=== PATIENT | female | born 1970 | race Caucasian/White ===

== ENCOUNTER 2020-08-09 10:24 | Outpatient (REF) | payer BC, SELFPAY | END 2020-08-09 10:25 | disposition home or self-care (01) | LOC: HO.LAB 10:24 | PROVIDERS: PCP Family Medicine; Visit Provider Internal Medicine | DX: Z20.828 Contact with and (suspected) exposure to other viral communicable diseases (principal) | CPT/HCPCS: C9803; U0003 ==

== ENCOUNTER 2022-02-03 15:31 | Outpatient (REF) | payer OTHER, SELFPAY ==
--- NOTE | ~2022-02-03 | MM_ITS ---
EXAMINATION: MM SCREENING DIGITAL BREAST TOMOSYNTHESIS, BILATERAL CLINICAL INFORMATION: Screening. Asymptomatic. The lifetime risk of breast cancer based on the Tyrer-Cuzick Model is 10%. COMPARISON: Mammography: 10/19/2019, 02/27/2018, 02/03/2016 TECHNIQUE: Digital breast tomosynthesis is performed in both the craniocaudal and mediolateral oblique views along with computer-aided detection (CAD). Synthesized 2D images are generated from the tomosynthesis. FINDINGS: The breasts are heterogeneously dense, which may obscure small masses (ACR BI-RADS breast composition Category c). There is fibronodular parenchymal pattern similar to prior exams. Stable nodularity retroareolar right breast is again noted. Neither breast shows interval dominant mass or architectural abnormality or abnormal calcifications. The axilla and skin contours are unremarkable. No significant changes. MM/MM tomosynthesis screening BI IMPRESSION: No significant changes from prior studies. ASSESSMENT: BI-RADS 2: Benign RECOMMENDATION: Routine annual mammography screening. This patient's information was entered into a reminder system with a target due date for their next mammogram.
== END 2022-02-03 15:32 | disposition home or self-care (01) ==
LOC: HO.MAMMO 15:31
PROVIDERS: Visit Provider Family Medicine
DX: Z12.31 Encounter for screening mammogram for malignant neoplasm of breast (principal)
CPT/HCPCS: 77063; 77067

== ENCOUNTER 2023-02-28 15:38 | Outpatient (REF) | payer OTHER, SELFPAY ==
--- NOTE | ~2023-02-28 | MM_ITS ---
EXAMINATION: MM SCREENING DIGITAL BREAST TOMOSYNTHESIS, BILATERAL CLINICAL INFORMATION: Screening. Asymptomatic. The lifetime risk of breast cancer based on the Tyrer-Cuzick Model is 7%. COMPARISON: Mammography: 02/03/2022, 10/19/2019, 02/27/2018 TECHNIQUE: Digital breast tomosynthesis is performed in both the craniocaudal and mediolateral oblique views along with computer-aided detection (CAD). Synthesized 2D images are generated from the tomosynthesis. FINDINGS: The breasts are heterogeneously dense, which may obscure small masses (ACR BI-RADS breast composition Category c). There is fibronodular parenchymal pattern similar to prior studies. No interval dominant mass or architectural abnormality or abnormal calcifications. There is incidental benign coarse calcification anterior right breast in area of stable nodularity consistent with degenerating fibroadenoma. The axilla and skin contours are unremarkable. There are no significant changes from prior exam. MM/MM tomosynthesis screening BI IMPRESSION: No significant changes from prior studies. ASSESSMENT: BI-RADS 2: Benign RECOMMENDATION: Routine annual mammography screening. This patient's information was entered into a reminder system with a target due date for their next mammogram.
== END 2023-02-28 15:39 | disposition home or self-care (01) ==
LOC: HO.MAMMO 15:38
PROVIDERS: PCP Family Medicine; Visit Provider Family Medicine
DX: Z12.31 Encounter for screening mammogram for malignant neoplasm of breast (principal)
CPT/HCPCS: 77063; 77067

== ENCOUNTER 2024-03-01 15:18 | Outpatient (REF) | payer OTHER, SELFPAY ==
--- NOTE | ~2024-03-01 | MM_ITS ---
EXAMINATION: MM SCREENING DIGITAL BREAST TOMOSYNTHESIS, BILATERAL CLINICAL INFORMATION: Screening. Asymptomatic. COMPARISON: Mammography: This study is compared with prior exams dating back to 2019. TECHNIQUE: Digital breast tomosynthesis is performed in both the craniocaudal and mediolateral oblique views along with computer-aided detection (CAD). Synthesized 2D images are generated from the tomosynthesis. FINDINGS: There are scattered areas of fibroglandular density (ACR BI-RADS breast composition Category b). There are no significant masses, abnormal calcifications, or other abnormalities. There is a coarse calcification associated with a mammographically benign mass in the right retroareolar region. MM/MM tomosynthesis screening BI IMPRESSION: No mammographic evidence of malignancy. ASSESSMENT: BI-RADS BI-RADS 2 - Benign Findings RECOMMENDATION: Routine annual mammography screening. 1 year F/U This examination should not preclude the clinical evaluation of a suspicious palpable abnormality. This patient's information was entered into a reminder system with a target due date for their next mammogram.
== END 2024-03-01 15:19 | disposition home or self-care (01) ==
LOC: HO.MAMMO 15:18
PROVIDERS: PCP Family Medicine; Visit Provider Family Medicine
DX: Z12.31 Encounter for screening mammogram for malignant neoplasm of breast (principal)
CPT/HCPCS: 77063; 77067

== ENCOUNTER → 2024-03-01 15:30 | Outpatient (BNV) | payer OTHER, SELFPAY | PROVIDERS: PCP Family Medicine; Visit Provider Radiology Diagnostic Radiology | DX: Z12.31 Encounter for screening mammogram for malignant neoplasm of breast (principal) | CPT/HCPCS: 77063; 77067 ==

== ENCOUNTER 2024-03-30 07:53 | Day surgery (SDC) | payer BC, SELFPAY ==
[2024-03-27 13:50] VITALS: BMI 30.7
[2024-03-30 08:03] VITALS: BMI 29.2
[2024-03-30 08:08] VITALS: BP 131/62; PULSE 71; RESP 15; TEMP 36.3; O2SAT 99
--- NOTE | 2024-03-30 08:13 | HO.ANESPROP2 ---
[facility] Past Medical History Medical History HX: benign breast biopsy Seasonal allergies Surgical History Surgical History Hx of tubal ligation History of Problems with Anesthesia: No Social History Social History Household Members: Spouse Patient Tobacco Use Status: Never used Tobacco Use of substances other than those prescribed or required for medical reasons: No Are you DNR?: No Advance Directives: No Advance Directives Information Provided: Yes Meds Allergies Allergy/AdvReac Type Severity Reaction Status Date / Time oxycodone [Percocet] Allergy Intermediate hives Verified 03/30/24 08:03 Active Medications: Current Medications Sodium Biphosphate/Sodium Phosphate (Sodium Phosphate,Yellowstone-Dibasic 133 Ml Enema) 133 ml NV ONCE PRN PRN Reason: Poor Colonoscopy Prep Results Home Medications ?Medication ?Instructions ?Recorded ?Confirmed ?Last Taken ?Type cetirizine 10 mg tablet (Zyrtec) 10 mg PO DAILY 03/27/24 03/27/24 Unknown History Exam Height,Weight and Vital Signs: Height 5 ft 6 in Weight 82.01 kg Airway Mallampati Class: II TM Dist: >3cm Neck ROM: Full Loose/Missing/Broken Teeth: No Heart: RRR Lungs: CTA Assessment and Plan Assessment Anesthesia Assessment: Anesthesia Plan Discussed and Chart Reviewed Final Anesthetic Review History of Problems with Anesthesia: No NPO: Yes ASA Class: II Final Preanesthetic Review: Meds/Allgs Chart Reviewed, Consent Obtained/Reviewed and Anes Risks/Benef Reviewed Patient Risk: Low Procedure Risk: Low Anesthetic Plan Anesthetic Plan: MAC: Disposition: Standard PACU
[2024-03-30] MEDS: Lactated Ringers 1,000 ML 50 ML IVCONT (08:23)
[2024-03-30 09:38] VITALS: BP 98/48; PULSE 69; RESP 16; TEMP 36.3; O2SAT 98
--- NOTE | 2024-03-30 09:41 | P.BOP_ITS ---
Brief Operative Note Date of Service: 03/30/24 Pre-op diagnosis: Screening Post-op diagnosis: other (Colon polyps) Procedure: Colonoscopy to the cecum with cold snare polypectomy x 2 Surgeon: Shree Guzman MD Anesthesia: MAC Was an Residential Sales Consultant used for this Procedure?: No Estimated blood loss (mL): 2.0 Pathology: other (A. Polyp at 60cm B. Polyp at 30cm.) Condition: stable Disposition: PACU
[2024-03-30 09:53] VITALS: BP 112/69; PULSE 55; RESP 16; O2SAT 99
--- NOTE | 2024-03-30 09:53 | OP_ITS ---
DATE OF SERVICE: 03/30/2024 SURGEON: Shree Guzman MD INDICATIONS: The patient presents for evaluation of colorectal cancer screening. Full consent obtained from her for this, including risks of bleeding and perforation. PREOPERATIVE DIAGNOSIS: POSTOPERATIVE DIAGNOSIS: PROCEDURE PERFORMED: Colonoscopy to cecum with cold snare polypectomy. ESTIMATED BLOOD LOSS: COMPLICATIONS: ANESTHESIA: Monitored anesthesia care. ASSISTANTS: SPECIMENS: PREOP DIAGNOSIS: Colorectal cancer screening. POSTOP DIAGNOSES: Same, small colon polyps, occasional sigmoid diverticulosis, small internal hemorrhoids. DESCRIPTION OF PROCEDURE: The patient was placed in the left lateral decubitus position. The digital rectal exam revealed no abnormalities. The Olympus video pediatric colonoscope was entered into the rectum and advanced easily to the cecum. Once in the cecum, I did identify normal-appearing cecal pouch with appendiceal orifice and a normal-appearing ileocecal valve. The entire cecum and ileocecal valve appeared normal. Scope was slowly withdrawn assessing all mucosal surfaces carefully. Preparation was excellent. At 60 cm was an approximately 4 mm polyp, which was removed by cold snare polypectomy and recovered by suction. The polypectomy site appeared clean, without any sign of residual polyp nor any significant bleeding. At 30 cm was an approximately 5 or 6 mm grossly adenomatous polyp, which was removed by cold snare polypectomy and recovered by suction. The polypectomy site appeared clean, without any sign of residual polyp nor bleeding. I did not visualize any other polyps, colitis, nor angiodysplasia. There was a mild amount of sigmoid diverticulosis. In the rectum, scope was retroflexed visualizing internal hemorrhoids, but no other pathology. The rectal mucosa appeared normal. The scope was straightened and withdrawn from the patient. She tolerated the procedure well and was returned to the recovery area in stable condition. IMPRESSION: 1. Colon polyps. 2. Diverticulosis. 3. Internal hemorrhoids. PLAN: The results of the pathology will be checked; if either of the polyps are tubular adenoma, I would recommend a followup colonoscopy in 5 years. If they are both hyperplastic, I would recommend a followup coloscopy in 10 years. She will otherwise see me on a p.r.n. basis. MD VENANCIO [place]/SHLOMO / [phone]
[2024-03-30 10:08] VITALS: BP 113/57; PULSE 61; RESP 18; TEMP 36.1; O2SAT 97
== END 2024-03-30 10:43 | disposition home or self-care (01) ==
PROVIDERS: PCP Family Medicine; Visit Provider Internal Medicine
PROC: 0DJD8ZZ Inspection of Lower Intestinal Tract, Via Natural or Artificial Opening Endoscopic (ICD-10-PCS; CPT 45378; principal; 2024-03-30 09:00)
DX: Z12.11 Encounter for screening for malignant neoplasm of colon (principal); D12.5 Benign neoplasm of sigmoid colon; K63.5 Polyp of colon; K57.30 Diverticulosis of large intestine without perforation or abscess without bleeding; K64.8 Other hemorrhoids; J30.2 Other seasonal allergic rhinitis; Z79.51 Long term (current) use of inhaled steroids; Z88.5 Allergy status to narcotic agent; Z98.51 Tubal ligation status
CPT/HCPCS: 45385; 88305; J2704

== ENCOUNTER 2025-03-07 15:06 | Outpatient (REF) | payer BC, SELFPAY ==
--- OUTSIDE RECORDS SUMMARY | 2025-03-07 17:45 | XMS_ITS ---
Author Organization [facility] Address [address] [place] [address] Care Team Providers Care Manager Express Name Role Phone Barbara Kelly M.D. Primary Care Provider Unava Shree Lu [phone] REASON FOR VISIT colonoscopy Encounters Encounter Location Date Provider Diagnosis [facility] [address] [place] [address] 02/27/2024 Shree Guzman Plan Of Treatment No Information Progress Notes * ALICIA [birth year]SDOB:[birth year] (54 yo F)Acc No.[id number]:02/27/2024 Patient:?ALICIA SEALS :1970???Age:54 Y???Sex:Female [place]: [place], [address] * true * Date:? Generated for Juan Migueli jostin/Leny/eTransmitting on:?03/07/2025 05:44 PM EDT
== END 2025-03-07 15:07 | disposition home or self-care (01) ==
LOC: HO.MAMMO 15:06
PROVIDERS: PCP Family Medicine; Visit Provider Family Medicine
DX: Z12.31 Encounter for screening mammogram for malignant neoplasm of breast (principal)
CPT/HCPCS: 77063; 77067

== ENCOUNTER → 2025-03-07 15:15 | Outpatient (BNV) | payer BC, SELFPAY | PROVIDERS: PCP Family Medicine; Visit Provider Internal Medicine | DX: Z12.31 Encounter for screening mammogram for malignant neoplasm of breast (principal) | CPT/HCPCS: 77063; 77067 ==

== ENCOUNTER 2025-05-28 14:44 | Outpatient (REF) | payer BC, SELFPAY ==
--- NOTE | ~2025-05-28 | MM_ITS ---
EXAMINATION: MM DIAGNOSTIC DIGITAL BREAST TOMOSYNTHESIS, LEFT CLINICAL INFORMATION: Callback from screening for left breast asymmetry in the superior breast middle depth on the MLO view. COMPARISON: Comparison made to multiple prior, most recent March 07, 2025, and most remote April 15, 2014. TECHNIQUE: Digital breast tomosynthesis is performed in full-field MLO along with computer-aided detection (CAD). Synthesized 2D images are generated from the tomosynthesis. Spot compression tomosynthesis were obtained. FINDINGS: BREAST COMPOSITION: There are scattered areas of fibroglandular density (ACR BI-RADS breast composition Category b). LEFT BREAST: Previously suggested asymmetry in the upper breast middle depth partially effaces on today's images. It is adjacent to the scar skin marker (from remote excisional biopsy). Local parenchyma is similar to multiple prior studies as far back as 2013 and may be secondary to previous surgery. MM/MM tomosynthesis added views L IMPRESSION: LEFT BREAST: Pliable asymmetry in the upper breast, likely related to the prior surgery. Benign, no mammographic evidence of malignancy. Normal interval follow-up is recommended in 12 months. ASSESSMENT: BI-RADS 2 - Benign Findings RECOMMENDATION: 1 year F/U Results were provided to the patient at time of visit by the technologist. This patient's information was entered into a reminder system with a target due date for their next mammogram. Electronically signed by: Luis Pryor MD 05/28/2025 06:28 PM EDT Workstation: [id number]
--- OUTSIDE RECORDS SUMMARY | 2025-05-28 15:58 | XMS_ITS | Clinical Summary ---
Author Organization [facility] Address [address] [place] [address] Care Team Providers Care Client Services Representative Name Role Phone Unavailable Primary Care Provider Unavailabl e Source Comments PLEASE NOTE, if this patient is a minor, it may be UNLAWFUL to discuss sensitive information that is contained in these records (such as FAMILY PLANNING, MENTAL HEALTH or SUBSTANCE ABUSE) with the minor patient's parent or other person without the patient's specific authorization.[facility] Immunizations Immunization Administration Dates Next Due Moderna COVID-19 Vaccine, re d cap blue label, 12+ Primary Series 01/06/2021,12/09/2020 Social History Tobacco Use Types Packs/Day Years Used Date Smoking Tobacco: Never Assessed Social Connections Answer Date Recorded Social Connections and Isolation 0 2024 Financial Resource Strain Answer Date R ecorded Financial Resource Strain 0 2023 Stress Answer Date Recorded Stress 0 2024 Physical Activity Answer Date Recorded Physical Activity 0 2024 Food Insecurity Answer Date Recorded Food 0 2024 Transportation Needs Answer Date Record ed Transportation 0 2024 Housing Stability Answer Date Recorded Housing 0 2024 Safety and Environment Answer Date Gideon rded Safety 0 2024 Utilities Answer Date Recorded Utilities 0 2024 Employment Answer Date Recorded Employment 0 2024 Comments Unknown Sex and Gender Information Value Date Recorded Sex Assigned at Not on file Legal Sex Female 5:33 AM PST Gender Identity Not on file Sexual Orientation Not on file Plan of Treatment Health Maintenance Due Date Last Done Comments Anxiety Screening 1970 Diabetes Screening 1970 HPV Screening 1970 Hepatitis C Screening 1972 Lipid Screening 1972 Pap + HPV 1972 Tobacco Screening 1972 HIV Screening 01/26/1987 Hypertension Screening (#1) 01/26/1990 Imm-Hepatitis B (1 of 3 - 19 + 3-dose series) 01/26/1991 Cervical Cancer Screening 01/26/1993 Pap Smear 01/26/1993 Breast Cancer Screening (Mammogram) 2012 CT Colonography 01/26/2017 Colonoscopy 01/26/2017 Colorectal Cancer Screening 01/26/2017 FIT/gFOBT 01/26/2017 Fecal DNA 01/26/2017 Flexible Sigmoidoscopy 01/26/2017 Imm-Pneumococcal 50+ (1 of 1 - PCV) 01/26/2022 Imm-Zoster, Recombinant (1 of 2) 01/26/2022 [id number] (3 - 2023- season) 2024 021, 12/09/2020 Alcohol and Drug Screen 09/26/2024 Depression Annual Screen 09/26/2024 Imm-Influenza (#1) 2025 Imm-DTaP/Tdap/Td (2 - Td or Tdap) 04/21/2026 016 Cervical Ablation/Cold-Knife Conization Discontinued Cervical Cryotherapy Discontinued Colposcopy Discontinued Endometrial Biopsy Discontinued Excision/Leep Discontinued HPV Genotyping Discontinued Vaginal Pap Discontinued Vulvoscopy Discontinued Insurance BLUE CROSS/[place]
--- OUTSIDE RECORDS SUMMARY | 2025-05-28 15:58 | XMS_ITS | Clinical Summary ---
Author Organization [facility] Address [facility] [place] [address] [address] Phone Care Team Providers Care Implementation Lead Name Role Phone Barbara Kelly MD Primary Care Provider Barbara Kelly MD Unavailable [phone] Allergies Active Allergy Reactions Criticality Noted Date Comments Oxycodone-Acetaminophen Hives,Itching 0 Medications cetirizine (ZYRTEC) 10 MG tablet Take 10 mg by mouth daily. Active Active Problems Problem Noted Date Diagnosed Date Family history of uterine cancer 03/06/2025 Overview (03/06/2025): Mother, endometrial, stage 4 Allergic contact dermatitis 01/23/2025 Assessment & Plan (01/23/2025 4:44 PM EDT): Family history of breast cancer 05/18/2023 Overview (03/06/2025): Maternal aunt in 60s Assessment & Plan (01/23/2025 9:33 AM EDT): Orders: Ambulatory referral to [facility] Cancer Genetics Routine medical exam 04/22/2022 Assessment & Plan (01/23/2025 4:44 PM EDT): 54 y.o. female here for complete physical exam. Medical comorbidities stable and/or managed by specialists as noted in the HPI. USPSTF A&B recommendations reviewed with pt. BP: WNL BMI: Body mass index is 30.8 kg/m . and encourage regular exercise Pap smears for people age 21-65 with a cervix: schedled to see PUBLIC HEALTH DIETITIAN in February STI testing for teens and adults at risk, and at least one lifetime HIV, hep B& C test: Done previously and normal/negative per pt PrEP for persons at high risk of HIV: N/A plans in the next year: N/A patient/partner is postmenopausal Depression and anxiety screens: Negative IPV screen in women of reproductive age (or others PRN): Negative Smoking cessation counseling: N/A Alcohol use counseling: N/A LTBI screening in people at increased risk: Done previously and normal/negative per pt BrCa screening in women/AFAB people at risk: 7-Question Family History Screening Tool and Any woman in the family with breast cancer before age 50 - 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 The 10-year ASCVD risk score (Laly HERNANDEZ, et al., 2019) is: 0.9% Values used to calculate the score: Age: 54 years Sex: Female Is Non- : No Diabetic: No Tobacco smoker: No Systolic Blood Pressure: 104 mmHg Is BP treated: No HDL Cholesterol: 61 mg/dL Total Cholesterol: 208 mg/dL Glucose/diabetes screening for people 35 - 70 with BMI >25: WNL 2022, repeat 3-5 years HEMOGLOBIN A1C Date Value Ref Range Status 05/17/2023 5.5 4.3 - 5.8 % Final Breast cancer risk reducing medication in people with breasts 35 and older at risk: depends on genetic Breast cancer screening with biennial mammography for people with breasts 40 and older: Not due until 2025 Colonoscopy for adults 45-75: Not due until 2028 Serial lung cancer screening for adults age 50-80 with 20+ pack year history who currently smoke or quit in the last 15 years: N/A Assessment & Plan (05/18/2023 8:05 AM EDT): 53 y.o. female here for complete physical exam. 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 USPSTF A&B recommendations reviewed with pt. BP: mildly elevated; forgot to recheck; will continue to monitor BMI: Body mass index is 30.91 kg/m . and discussed limiting sweets after 9 PM, which she feels is realistic and will help Pap smears for people age 21-65 with a cervix: Not due until 2024 STI testing for teens and adults at risk, and at least one lifetime HIV and hep C test: Done previously and normal/negative per pt PrEP for persons at high risk of HIV: N/A plans in the next year: N/A patient/partner is perimenopausal Depression and anxiety screens: Negative IPV screen in women of reproductive age (or others PRN): Negative Smoking cessation counseling: N/A Alcohol use counseling: N/A LTBI screening in people at increased risk: Done previously and normal/negative per pt BrCa screening in women/AFAB people at risk: 7-Question Family History Screening Tool and Any woman in the family with breast cancer before age 50 - aunt age 48. Discussed, referral placed. May opt to go to [place] instead if available there Vaccinations: recommend COVID booster @ pharmacy Last dental visit: up to date Lipid screening to consider statin for primary prevention for adults 40-75, or at younger ages with risk factors: low risk 2021, repeat @ 5 years This SmartLink has been updated to reference the ASCVD 2013 equation and not the 2018 equations. The 10-year ASCVD risk score (Laly HERNANDEZ, et al., 2019) is: 1.4% Values used to calculate the score: Age: 53 years Sex: Female Is Non- : No Diabetic: No Tobacco smoker: No Systolic Blood Pressure: 135 mmHg Is BP treated: No HDL Cholesterol: 61 mg/dL Total Cholesterol: 208 mg/dL Glucose/diabetes screening for people 35 - 70 with BMI >25: Ordered HEMOGLOBIN A1C Date Value Ref Range Status 04/20/2022 5.7 4.3 - 5.8 % Final Breast cancer risk reducing medication in people with breasts 35 and older at risk: Depends ongenetics Aspirin for primary prevention for adults 40-59 with risk >10%, but no older: N/A Breast cancer screening with biennial mammography for people with breasts 50 and older, and can consider for 40-49: done at [address] year per pt Colonoscopy for adults 45-75, and can consider at older ages: Referred to Gastroenterology Assessment & Plan (04/22/2022 4:51 PM EDT): 52 y.o. female here for complete physical exam. Exam consistent with tinea pedis. We discussed that treatment needs to be a lot more consistent. [id number] medicine should work just fine if she uses it twice daily. I think she may be having some kind of contact dermatitis to her jewelry. I recommend a trial of a topical steroid along with full avoidance of jewelry on this wrist. If her rash clears up she can try wearing her brace that again and if that brings the rash on again then that we will answer question of whether it is the irritant. If the rash does not improve with this treatment then she should call me for a referral to dermatology. Her other, seasonal allergies have been stable. USPSTF A&B recommendations reviewed with pt. BP: WNL BMI: Body mass index is 30.99 kg/m . and recommend eating less sweets, which she characterizes as a chronic struggle Pap smears for people age 21-65 with a cervix: Not due until 2024 STI testing for teens and adults at risk, and at least one lifetime HIV and hep C test: Done previously and normal/negative per pt PrEP for persons at high risk of HIV: N/A plans in the next year: No plans for . 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 Last dental visit: up to date Lipid screening to consider statin for primary prevention for adults 40-75, or at younger ages with risk factors: Ordered Glucose/diabetes screening for people 35 - 70 with BMI >25: Ordered Breast cancer risk reducing medication in people with breasts 35 and older at risk: n/a Aspirin for primary prevention for adults 40-59 with risk >10%, but no older: Depends on lipids Breast cancer screening with biennial mammography for people with breasts 50 and older, and can consider for 40-49: done in January at [facility] per pt Colonoscopy for adults 45-75, and can consider at older ages: prefers FIT screening for now Mild obesity 04/22/2022 Assessment & Plan (01/23/2025 4:44 PM EDT): Environmental and seasonal allergies 04/15/2020 Overview (04/15/2020): Springtime worse - takes zyrtec 10 mg daily. Assessment & Plan (01/23/2025 4:44 PM EDT): Resolved Problems Problem Noted Date Diagnosed Date Resolved Date Rash and other nonspecific skin eruption 04/22/2022 01/06/2024 Encounters Date Type Department Care Team Description 04/26/2025 Telephone [facility] Primary Care [address] [place] [address] Barbara Kelly MD additional breast imaging requested 03/18/2025 Orders Only [facility] Family Medicine [address] [place] [address] Barbara Kelly MD 03/06/2025 2:30 PM EDT Office Visit [facility] [address] [place] [address] [place] [address] Eda Quinonez MD Encounter for annual routine gynecological examination (Primary Dx); Family history of breast cancer; Family history of uterine cancer from Last 3 Months Immunizations Immunization Administration Dates Next Due Pneumococcal conjugate PCV20 01/23/2025 Tdap 04/21/2016 Zoster recombinant 11/10/2022,04/20/2022 Family History Medical History Relation Comments Breast cancer Maternal Aunt Colon cancer Maternal Grandmother Diabetes Maternal Grandmother Asthma Mother Brain cancer Mother Diabetes Mother Endometrial cancer Mother Coronary artery disease Neg Hx Ovarian cancer Neg Hx Stroke Neg Hx Relation Status Comments Daughter Alive Father Maternal Aunt Alive Maternal Grandmother Mother Son Alive Social History Tobacco Use Types Packs/Day Years Used Date Smoking Tobacco: Never Smokeless Tobacco: Never Tobacco Cessation:Counseling Given: Not Answered Alcohol Use Standard Drinks/Week Comments Not Currently 0 (1 standard drink = 0.6 oz pur e alcohol) Child or Family Care Answer Date Record ed Do you have problems with on e of the following making it difficult for you to work, study, or receive health care? No 01/23/2025 Education Answer Date Recorded Are you interested in help w ith more adult education (for example, completing high school, GED, job training, learning the [place] language, technical skills, or developing parenting skills)? No 01/23/2025 Are you concerned about learning? Not on file 01/23/2025 No 01/23/2025 Yes 01/23/2025 Food Answer Date Recorded Within the past 6 months we worried whether our food would run out before we got money to buy more. Never True 01/23/2025 Within the past 6 months the food we bought just didn't last and we didn't have enough money to get more. Never True Residential Stability Answer Date Recor ded What is your housing situation today? I have tiera sing 01/23/2025 How many times have you move d in the past 12 months? Zero (I did not move) 01/23/2025 Paying for Meds Answer Date Recorded Do you have trouble paying for medicines? No 01/23/2025 Paying Utility Bills Answer Date Record ed Do you have trouble paying your heating or elect ricity bill? No 01/23/2025 Transportation Answer Date Recorded Has the lack of transportati on kept you from medical appointments or from getting medications? No 01/23/2025 Unemployment Answer Date Recorded Are you currently unemployed or working on a part-time or temporary basis, and looking for work? No 04/20/2022 Digital Access Answer Date Recorded No 01/23/2025 Yes 01/23/2025 Do you have reliable internet access at home? Ye s 01/23/2025 Do you have a device (e.g., phone, tablet, computer) with a working camera? Yes 01/23/2025 Intimate Partner Violence Answer Date R ecorded Denied Basic Needs Not on file 01/23/2025 In the past 12 months have y ou been in a relationship with a person who hurts, threatens, or tries to control you? No 01/23/2025 Worried food would run out Not on file 01/23 In the past 12 months have y ou been in a relationship with a person who hurts, threatens, or tries to control you? 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 Not on file Not on file Not on file Last Filed Vital Signs Vital Sign Reading Time Taken Comments Blood Pressure 122/82 03/06/2025 2:41 PM EDT Pulse 74 01/23/2025 8:46 AM EDT Temperature 36.6 C (97.8 F) 01/23/2025 8:46 AM EDT Respiratory Rate 18 01/23/2025 8:46 AM EDT Oxygen Saturation 93% 01/23/2025 8:46 AM EDT Inhaled Oxygen Concentration - - Weight 86.6 kg (191 lb) 03/06/2025 2:41 PM EDT Height 167.6 cm (5' 6 ) 03/06/2025 2:41 PM EDT Body Mass Index 30.83 03/06/2025 2:41 PM EDT Plan of Treatment Upcoming Encounters Date Type Department Care Team (Late st Contact Info) Description 04/08/2026 9:00 AM EDT Office Visit [facility] [address] [facility] [address] [place] [address] Barbara Kelly MD [address] [facility] [address] [place] [address] [email or web address] Health Maintenance Due Date Last Done Comments COLOGUARD 01/26/2017 FIT TEST 01/26/2017 FOBT 01/26/2017 SIGMOIDOSCOPY 01/26/2017 VIRTUAL COLONOSCOPY 01/26/2017 COVID-19 VACCINE ( season) 2025 08/01/2021, 01/06/2021, 12/09/2020 Postponed from 05/27/2024 (Vaccine Shortage) MAMMOGRAM 09/06/2025 03/07/2025, 06/0 02/2024, 10/19/2019 DEPRESSION SCREENING 01/23/2026 01/23/2025 HEPATITIS C SCREENING 01/23/2026 Postpo jessenia from 01/26/1990 (Patient Declines / Guardian Declines) HIV ONE-TIME SCREENING (18-65 YEARS) 01/23/2026 Postponed from 01/26/1990 (Patient Declines / Guardian Declines) Adult Td,Tdap Booster 04/21/2026 04/21/2016 SCREENING FOR DIABETES 05/17/2026 05/17/2023 LIPID PANEL 04/20/2027 04/20/2022 COLONOSCOPY 03/30/2029 03/30/2024 COLORECTAL CANCER SCREENING 03/30/2029 PAP SMEAR 03/06/2030 03/06/2025, 05/28, 06/18/2020, Additional history exists ZOSTER VACCINES Completed 11/10/2022, 04/20/2022 PNEUMOCOCCAL VACCINES (50+ years) Completed 01/23/2025 SMOKING STATUS SCREENING (Once After 26 Yrs) Completed 03/06/2025 HEPATITIS A VACCINES Aged Out No long er eligible based on patient's age to complete this topic HIB VACCINES Aged Out No longer eligi ble based on patient's age to complete this topic MENINGOCOCCAL VACCINES (ACWY) Aged Out No longer eligible based on patient's age to complete this topic MENINGOCOCCAL VACCINES (B) Aged Out N o longer eligible based on patient's age to complete this topic Medical Devices Not on file Procedures Procedure Name Priority Date/Time Associated Diagnosis Comments BI US BREAST (LEFT) Routine 04/26/2025 1 2:44 PM EDT Abnormal mammogram of left breast BI MAMMOGRAM DIAGNOSTIC (LEFT) Routine 04/26/2025 12:44 PM EDT Abnormal mammogram of left breast MAMMOGRAPHY Routine 03/07/2025 8:45 AM EDT PAP TEST Routine 03/06/2025 12:00 AM EDT COLONOSCOPY FOR RESULT ENTRY ONLY Routine 03/30/2024 10:46 AM EDT LIPID PANEL Routine 04/20/2022 12:36 PM EDT Routine medical exam from Last 3 Months or Most Recently Relevant to Health Maintenance Results * MAMMOGRAPHY FOR RESULT ENTRY ONLY (03/07/2025 8:45 AM EDT) us Barbara Kelly MD HEALTH MAINTENANCE Edited Re sult - Final * Pap Test (03/06/2025 12:00 AM EDT) 03/06/2025 03/07/2025 9:3 6 AM EDT Narrative SEE NARRATIVE - 03/13/2025 8:11 [place] [address] Or Rn: Garcia Hyatt MD PUBLIC HEALTH DIETITIAN Cytology Report FINAL DIAGNOSIS A. PAP SMEAR (THIN PREP) CE: SPECIMEN ADEQUACY: Satisfactory for evaluation; transformation zone present. INTERPRETATION: NEGATIVE FOR INTRAEPITHELIAL LESION OR MALIGNANCY. This specimen was analyzed by the automated ThinPrep Imaging System ([facility] and the selected ochoa were reviewed by a can feeder. Electronically Signed Out By: ABDULAZIZ Toney(ASCP) The Pap test is a screening test primarily for squamous cancers and precursors and has associated false-negative and false-positive results. New technologies such as liquid-based preparations may decrease but will not eliminate all false-negative results. Regular sampling and follow-up of unexplained clinical signs and symptoms are recommended to minimize false negative results. PROCEDURES/ADDENDA HPV Testing (Requested) Ordered Date: 03/07/2025 A. PAP SMEAR (THIN PREP) CE: High-risk HPV Panel w/ extended genotyping NEG HPV 16-NEG HPV 18-NEG HPV 45-NEG HPV 33/58-NEG HPV 31-NEG HPV 56/59/66-NEG HPV 51-NEG HPV 52-NEG HPV 35/39/68-NEG Performed by real-time polymerase chain reaction (PCR) at [facility], [address] [place] [address] using the FDA-approved BD Onclarity HPV Assay with extended genotyping. Uses of the assay in scenarios other than those approved by the FDA should be considered off-label use. The accuracy and precision of this test for all other off-label specimen sources has been verified in the Cytopathology Laboratory of the [facility] and has not been cleared or approved by the U.S. Food and Drug Administration. Clinical correlation is advised. The assay assesses the E6/E7 DNA target and utilizes human beta globin as an internal control. Cytology and HPV testing are screening assays and should not be used as the sole means of detecting cancer. False-positives and false-negatives can occur. CLINICAL HISTORY Date of Last Menstrual Period: Not Provided Menstrual History: Post Menopausal Other Clinical Conditions: Screening Pap SPECIMEN SOURCE A: PAP SMEAR (THIN PREP) CE Patient Name: JESS SEALS : 1970 (Age: 55) Sex: F Institution: [facility] Location: [facility] Date of Collection: 03/06/2025 Date of Reported: 03/13/2025 08:11 Results to: Eda Quinonez MD Eda Quinonez MD CYTOLOGY ORDERABLES Final Result SEE NARRATIVE * COLONOSCOPY FOR RESULT ENTRY ONLY (03/30/2024 10:46 AM EDT) us Historical Provider HEALTH MAINTENANCE Edited Result - Final * Lipid panel (04/20/2022 12:36 PM EDT) HDL 61 mg/dL [facility] Comment: Interpretation <40 mg/dL: Low HDL cholesterol (major risk factor for CHD) Greater than or equal to 60 mg/dL: High HDL cholesterol ( negative risk factor for CHD) HDL - cholesterol is affected by a number of factors, e.g. smoking, excerise, hormones, sex and age. CHOLESTEROL 208 0 - 240 mg/dL [facility] TRIGLYCERIDES 141 30 - 160 mg/dL [facility] LDL 119 50 - 129 mg/dL [facility] Comment: LDL levels in terms of risk for coronary heart disease: <100 mg/dL: Optimal 100-129 mg/dL: Near or above optimal 130-159 mg/dL: Borderline high 160-189 mg/dL: High >190 mg/dL: Very High CARDIAC RISK RATIO 3.4 3.3 - 4.4 [facility] Blood 04/20/2022 12:3 6 PM EDT 04/20/2022 12:38 PM EDT us Barbara Kelly MD LAB BLOOD ORDERABLES Final R esult [facility] [address] [place] [address] from Last 3 Months or Most Recently Relevant to Health Maintenance Insurance [facility] Care Teams Implementation Lead Relationship Specialty Start Date End Date Barbara Kelly MD [address] [facility] [address] [place] [address] [email or web address] PCP - General Family Medicine 01/30/21 Barbara Kelly MD [address] [place] [address] [address] [place] [address] [email or web address] Insurance Assigned Provider 07/01/24 Additional Source Comments The information contained in this document represents components of the legal health record. It is not the complete legal health record.[facility]
== END 2025-05-28 14:45 | disposition home or self-care (01) ==
LOC: HO.MAMMO 14:44
PROVIDERS: PCP Family Medicine; Visit Provider Family Medicine
DX: R92.8 Other abnormal and inconclusive findings on diagnostic imaging of breast (principal)
CPT/HCPCS: 77061; 77065

== ENCOUNTER → 2025-05-28 15:00 | Outpatient (BNV) | payer BC, SELFPAY | PROVIDERS: PCP Family Medicine; Visit Provider Radiology Body Imaging | DX: R92.8 Other abnormal and inconclusive findings on diagnostic imaging of breast (principal); R92.322 Mammographic fibroglandular density, left breast | CPT/HCPCS: 77061; 77065 ==